=== PATIENT | female | born 1970 | race African-American/Black ===

== ENCOUNTER 2022-12-06 08:38 | Day surgery (SDC) | payer SELFPAY ==
[2022-12-02 11:22] VITALS: BMI 27.1
[2022-12-06] MEDS ORDERED: LIDOCAINE HCL/PF 2% SDV 5ML VIAL ONE ×2 (09:27→16:03)
[2022-12-06] MEDS ORDERED: PROPOFOL 40 ML ONE (09:27)
[2022-12-06] MEDS ORDERED: ROCURONIUM BROMIDE 50 MG/5 ML SYRINGE ONE ×2 (09:29→13:06)
[2022-12-06] MEDS ORDERED: MIDAZOLAM HCL 2 MG/2 ML SINGLE DOSE VIAL ONE (09:31)
[2022-12-06] MEDS ORDERED: SODIUM CHLORIDE 0.9% P/F 10 ML VIAL IJ ONE (11:33)
[2022-12-06] MEDS ORDERED: BUPIVACAINE LIPOSOME/PF (EXPAREL) 266 MG/20 ML VIAL ONE (11:33)
[2022-12-06] MEDS ORDERED: BUPIVACAINE HCL/PF 0.25% (2.5MG/ML) 10 ML VIAL ONE (11:34)
[2022-12-06] MEDS ORDERED: EPINEPHrine/PF 1 MG/1 ML (1:1,000) AMPULE ONE ×2 (11:34→12:47)
[2022-12-06] MEDS ORDERED: LIDOCAINE HCL 1%, 10 MG/ML (20ML VIAL) ONE (11:35)
[2022-12-06] MEDS ORDERED: ceFAZolin SODIUM 1 GM VIAL ONE ×2 (11:45→16:54)
[2022-12-06] MEDS ORDERED: HEPARIN NA (PORCINE) 5,000 UNITS/ML 1ML VIAL SQ ONE (11:58)
[2022-12-06] MEDS ORDERED: PROPOFOL 20 ML ONE ×3 (13:00→16:19)
[2022-12-06] MEDS ORDERED: DEXAMETHASONE SOD PHOSPHATE 4 MG/1 ML VIAL ONE ×2 (13:07→16:26)
[2022-12-06] MEDS ORDERED: HYDROmorphone HCL/PF 1 MG/ML VIAL ONE ×2 (13:11→15:53)
[2022-12-06] MEDS ORDERED: ACETAMINOPHEN INJECTION 100 ML IVPB ONE ×2 (13:34→19:18)
[2022-12-06] MEDS ORDERED: LABETALOL HCL 5 MG/1 ML (100MG/20 ML VIAL) ONE (13:37)
[2022-12-06] MEDS ORDERED: PHENYLEPHRINE HCL 10 MG/1 ML SINGLE DOSE VIAL ONE (14:32)
[2022-12-06] MEDS ORDERED: SUGAMMADEX SODIUM 200 MG/2 ML VIAL ONE (14:51)
[2022-12-06] MEDS ORDERED: ONDANSETRON 4 MG/2 ML VIAL ONE (15:37)
[2022-12-06] MEDS ORDERED: NITROGLYCERIN 2% OINTMENT - 1GM PACKET TD ONE (17:54)
[2022-12-06] MEDS ORDERED: ONDANSETRON 4 MG/2 ML VIAL IVPUSH PRN (18:31)
[2022-12-06] MEDS ORDERED: oxyCODONE HCL 5 MG TABLET PO PRN (18:44)
[2022-12-06] MEDS ORDERED: ONDANSETRON 4 MG/2 ML VIAL IVPB PRN (18:44)
[2022-12-06] MEDS ORDERED: LACTATED RINGERS SOLUTION 1,000 ML IV SCH ×2 (18:45)
[2022-12-06] MEDS ORDERED: LABETALOL HCL 5 MG/1 ML (100MG/20 ML VIAL) IVPUSH PRN (18:53)
[2022-12-06] MEDS ORDERED: hydrALAZINE HCL 20 MG/ML VIAL ONE (19:19)
[2022-12-06] MEDS: hydrALAZINE HCL 20 MG/ML VIAL IVPUSH ONE (19:20)
[2022-12-06] MEDS: ACETAMINOPHEN 1000 MG/100 ML BAG IVPB PRN (19:22)
[2022-12-06] MEDS: HYDROCHLOROTHIAZIDE 12.5 MG CAPSULE (FP) PO SCH (21:44)
[2022-12-07] MEDS: ACETAMINOPHEN 1000 MG/100 ML BAG IVPB PRN
[2022-12-07 00:05] VITALS: RESP 18
[2022-12-07] MEDS: CEFAZOLIN 1 GM in DEXTROSE 5%-WATER - 50 ML IVPB SCH ×2 (01:25→09:40)
[2022-12-07] MEDS: hydrALAZINE HCL 20 MG/ML VIAL IVPUSH ONE (02:51)
[2022-12-07 06:32] VITALS: TEMP 98.7
[2022-12-07] MEDS ORDERED: HEPARIN NA (PORCINE) 5,000 UNITS/ML 1ML VIAL SQ SCH (08:00)
[2022-12-07] MEDS: HYDROCHLOROTHIAZIDE 12.5 MG CAPSULE (FP) PO SCH (10:49)
[2022-12-07 11:07] VITALS: BP 128/80; PULSE 87
== END 2022-12-07 10:49 | disposition home or self-care (01) ==
LOC: FASU 08:38 → FM/S 20:27 → FASU 12-07 10:49
PROVIDERS: ATTEND Plastic Surgery
PROC: 0J0M3ZZ Alteration of Left Upper Leg Subcutaneous Tissue and Fascia, Percutaneous Approach (ICD-10-PCS; 2022-12-06)
PROC: 0J0L3ZZ Alteration of Right Upper Leg Subcutaneous Tissue and Fascia, Percutaneous Approach (ICD-10-PCS; 2022-12-06)
PROC: 0W0F0ZZ Alteration of Abdominal Wall, Open Approach (ICD-10-PCS; principal; 2022-12-06 13:24)
PROC: 0J083ZZ Alteration of Abdomen Subcutaneous Tissue and Fascia, Percutaneous Approach (ICD-10-PCS; 2022-12-06 13:24)
DX: E88.1 Lipodystrophy, not elsewhere classified (principal); M95.8 Other specified acquired deformities of musculoskeletal system
CPT/HCPCS: 94760; J1644